=== PATIENT | male | born 1990 | race Caucasian/White ===

== ENCOUNTER 2016-05-21 09:26 | Day surgery (SDC) | payer MEDICARE, OTHER ==
--- NOTE | ~2016-05-21 | OP ---
Record Of Operation [facility] [address] [place]. [address] NAME: ELLY TATUM : 86 STATUS : REG [facility] PAT#: [id number] AGE: 25 ADM/REG DATE : 05/21/16 MR#: [id number] REPORT SERV DATE: 05/21/16 DICTATED BY: HENRIK AUGUST DATE: 05/21/16 REPORT STATUS : Draft TRANSCRIBED BY: MODL DATE: 05/21/16 DATE OF PROCEDURE: 05/21/2016 PROCEDURE: Bedside PEG change. INDICATION: Mr. Tatum is a 25-year-old with cerebral palsy, who has a nonfunctioning PEG tube. DESCRIPTION OF PROCEDURE: Upon dissection, the PEG is a balloon PEG that appeared to be in fairly damaged condition with warping and twisting of the shaft. The PEG is an 18-[place] tube. I did attempt to deflate the balloon; however, due to damage within the shaft, I was only able to remove 1 mL. Therefore, I had to use manual traction to remove the PEG with the balloon intact. This was done with minimal trauma. An 18-[place] Citizen MUNIRA balloon was then placed. The balloon was inflated with 10 mL of sterile water and the plan was to check a Gastrografin study to confirm placement if so they could resume using the PEG tube for medications and feeds immediately. GO/MODL Henrik August MD / [id number] CC: MD SAMIRA Castillo
[~2016-05-21 09:26] MED LIST: ALLEGRA180 PO; Acetaminophen PEG; BACIT TOP; BACLOFEN20 MG PEG; BACLOFEN20 MG PO; BACTROCR TOP; BACTRONASA NAS; BISR PR; BONIVA3I IV; CALMOSEPTINE EX; CALMOSEPTINE O2.5 OZ T; CARMEX; CARMEX TOP; CLARIT10 PEG; CLARIT10 PO; CO Q-10200 MG PO; Calcium Carbonate PEG; DESITIN TOP; DESITIN40 % TOP; FLONASE; FLONASE NAS; GOLD BOND; GOLD BOND POWDER; GOLD BOND TOP; IVVIBRA; KEPPRA750 MG PO; KEPPRAUDL PEG; KEPPRAUDL PO; MIRALAX POWDER1 PKT PO; MIRALAXPKT PO; MONODOX100 MG PO; NASACORTAQ NAS; NASOCORT; NYSTATIN; OS500+D PO; PALGIC4 MG PO; PROTONIX PEG; PROTONIX PO; SENOKOT PO; SENOKOTSYR PEG; SENOKOTSYR PO; SENTAB PO; TITRALALIQ PO; VITAMIN D400 UNI1 PEG; VITAMIN D400 UNI1 PO; VITE PO; ZANAFLEX 4 MG TA4 MG PEG; ZANAFLEX 4 MG TA4 MG PO; [UNRECOGNIZED DRUG - OTHER]; [UNRECOGNIZED DRUG - OTHER]; [UNRECOGNIZED DRUG - OTHER]; [UNRECOGNIZED DRUG - OTHER]; [UNRECOGNIZED DRUG - OTHER] PO; [UNRECOGNIZED DRUG - OTHER] TOP; [UNRECOGNIZED DRUG - REMARK]
== END 2016-05-21 23:59 | disposition home health service (06) ==
LOC: DMU 09:26
PROVIDERS: Internal Medicine Gastroenterology
PROC: 0D20XUZ Change Feeding Device in Upper Intestinal Tract, External Approach (ICD-10-PCS; principal; 2016-05-21 10:09)
DX: K94.23 Gastrostomy malfunction (principal); G80.9 Cerebral palsy, unspecified; R56.9 Unspecified convulsions; M81.0 Age-related osteoporosis without current pathological fracture; K21.9 Gastro-esophageal reflux disease without esophagitis; Z98.890 Other specified postprocedural states
CPT/HCPCS: 74240; G0463